=== PATIENT | male | born 1985 | race Caucasian/White ===

== ENCOUNTER 2023-09-03 09:46 | Emergency (ER) | payer OTHER, BC, SELFPAY ==
--- NOTE | ~2023-09-03 | XR_ITS ---
EXAMINATION: [id number] DATE: 09/03/2023 10:11 INDICATION: Right chest injury and pain. TECHNIQUE: A frontal view of the chest and 2 views on 3 radiographs of the right ribs were obtained. COMPARISON: None. FINDINGS: There is no pneumonia, pleural effusion, or pneumothorax. The heart size is normal. IMPRESSION: 1. No rib fracture. Reviewed, dictated and finalized at location E. [facility]TER IMPRESSION: 1. No rib fracture.
[2023-09-03 09:58] VITALS: BP 108/75; PULSE 62; RESP 16; TEMP 36; O2SAT 100
--- NOTE | 2023-09-03 10:15 | ED.GENADULT ---
HPI - General Adult General Chief complaint: Chest Pain Stated complaint: R RIB INJURY Time Seen by Provider: 09/03/23 10:10 Source: patient and RN notes reviewed Mode of arrival: ambulatory Limitations: no limitations History of Present Illness HPI narrative: Patient presents today complaining of right anterolateral rib pain that began approximately 40 minutes prior to exam after he slipped on some ice outside while working. Denies shortness of breath. Pain increases with movement or deep breath. Currently rates his pain 8/10 and has tried no [id number] interventions prior to arrival. Related Data Home Medications Medication Instructions Recorded Confirmed albuterol sulfate 90 mcg/actuation inhalation 09/03/23 aerosol inhaler atorvastatin 10 mg tablet mg 09/03/23 clonazepam 0.5 mg tablet mg 09/03/23 sertraline 100 mg tablet mg 09/03/23 sertraline 25 mg tablet mg 09/03/23 Review of Systems Review of Systems: CONSTITUTIONAL: Denies body aches, fever, chills, or sweats. EYES: Denies visual changes, redness, or discharge. ENT: Denies rhinorrhea, congestion, sore throat, or otalgia. CARDIOVASCULAR: Denies chest pain, palpitations, or edema. RESPIRATORY: Denies cough or dyspnea.+ right rib pain GASTROINTESTINAL: Denies abdominal pain, nausea, vomiting, or diarrhea. GENITOURINARY: Denies dysuria or hematuria. SKIN: Denies rash, itching, or wounds. MUSCULOSKELETAL: Denies back pain, joint pain, or myalgia. NEUROLOGIC: Denies headache, numbness, tingling, or weakness. PSYCH: Denies depression or anxiety. PMFSH Comments At time of signature, I have reviewed and agree with nursing past medical, surgical, social and family history unless otherwise noted. Please see nursing chart for further information. There is no relevant family history pertinent to the presenting complaint Exam Narrative: GENERAL: Well-appearing, well-nourished, and in mild pain distress HEAD: Normocephalic, atraumatic. EYES: EOMI. No redness or drainage. Conjunctivae normal. ENT: Mucous membranes pink and moist. NECK: Normal AROM. CHEST: No respiratory distress. Clear to auscultation. Tenderness to the right anterolateral ribs. No edema, ecchymosis, erythema, or crepitus noted. HEART: Regular rate and rhythm. No murmur appreciated. EXTREMITIES: Normal range of motion. No edema. SKIN: Warm, dry, no rash. Capillary refill normal. Normal skin turgor. NEURO: No focal deficits. Alert and oriented x3. Gait steady. PSYCH: Normal affect. No signs of depression or anxiety. Course Course Level of Care: Express Care Visit Vital Signs Vital signs: Vital Signs Temperature 96.8 F L 09/03/23 09:58 Pulse Rate 62 09/03/23 09:58 Respiratory Rate 16 09/03/23 09:58 Blood Pressure 108/75 09/03/23 09:58 Pulse Oximetry 100 09/03/23 09:58 Temperature 96.8 F L 09/03/23 09:58 Pulse Rate 62 09/03/23 09:58 Respiratory Rate 16 09/03/23 09:58 Blood Pressure 108/75 09/03/23 09:58 Pulse Oximetry 100 09/03/23 09:58 Reviewed Medical Decision Making MDM Narrative Medical decision making narrative: X-rays negative for fracture. Discussed [id number] treatment induration of pain. No prescription medications indicated at this time. Anticipatory guidance given. Differential Diagnosis Differential Diagnosis: Rib pain, rib contusion Vital Signs Vital Signs: Vital Signs Temperature 96.8 F L 09/03/23 09:58 Pulse Rate 62 09/03/23 09:58 Respiratory Rate 16 09/03/23 09:58 Blood Pressure 108/75 09/03/23 09:58 Pulse Oximetry 100 09/03/23 09:58 Temperature 96.8 F L 09/03/23 09:58 Pulse Rate 62 09/03/23 09:58 Respiratory Rate 16 09/03/23 09:58 Blood Pressure 108/75 09/03/23 09:58 Pulse Oximetry 100 09/03/23 09:58 Imaging Data Radiologist's impression: ITS Impressions Ribs w/Chest X-Ray 09/03/23 10:18 IMPRESSION: 1. No rib fracture.
== END 2023-09-03 10:45 | disposition home or self-care (01) ==
PROVIDERS: Emergency Provider Nurse Practitioner
DX: S20.211A Contusion of right front wall of thorax, initial encounter (principal); W00.0XXA Fall on same level due to ice and snow, initial encounter; Y99.0 Civilian activity done for income or pay; E78.00 Pure hypercholesterolemia, unspecified; F41.9 Anxiety disorder, unspecified
CPT/HCPCS: 71101; 99213; G0463